=== PATIENT | male | born 1950 | race Caucasian/White ===

== ENCOUNTER 2024-08-02 17:53 | Inpatient (IN) | payer OTHER ==
[~2024-08-02 17:53] MED LIST: Heparin 10,000 UNITS/ 10 ML VIAL ONE; Iopamidol-370 76% 500 ML MDV (1 ML CHARGE) ONE
[2024-08-02 18:52] LABS: #Basophils Less than 0.03 10x3/uL (0.0-0.2); #Eosinophils Less than 0.03 10x3/uL (0.0-0.7); %Basophils 0.1 % (0.0-1.0); %Eosinophils 0.1 % (0.0-10.0); %Lymphocytes 10.2 % (21.0-51.0); %Monocytes 9.7 % (0.0-10.0); %Neutrophils 79.5 % (42.0-75.0); Hematocrit 29.9 % (42.0-52.0); Hemoglobin 9.4 g/dL (14.0-18.0); Mean Corpuscular HGB CONC 31.4 g/dL (32.0-36.0); Mean Corpuscular Hemoglobin 26.1 pg (27.0-31.0); Mean Corpuscular Volume 83.1 fL (78.0-98.0); Mean Platelet Volume 9.3 fL (7.4-10.4); Platelet Count 233 10x3/uL (130-400); RBC Distribution Width 16.9 % (11.5-14.5)
[2024-08-02 18:59] LABS: Actual Bicarbonate (HCO3v) 24.6 mEq/L (22-28); Analyzer IN Cardio ER; Base Excess -0.5 mEq/L (-2.0 to +3.0); Chloride (VBG) 96 mmol/L (98-106); Hematocrit-VBG 26 % (42.0-52.0); Sodium 129 mmol/L (133-146); pH (venous) 7.382 (7.32-7.43)
[2024-08-02 19:13] LABS: Potassium (VBG) 6.04 mmol/L (3.70-5.30)
[2024-08-02 19:38] LABS: ALT (SGPT) 57 U/L (8-55); AST (SGOT) 46 U/L (5-34); Albumin 3.4 g/dL (3.4-4.8); Alkaline Phosphatase 91 U/L (40-110); Anion Gap 17 mmol/L (10-20); BUN (Urea Nitrogen) 55 mg/dL (8.4-25.7); Bilirubin, Total 0.4 mg/dL (0.2-1.2); Calc. Creatinine Clearance 0 mL/min (70-130); Calcium 9.3 mg/dL (7.8-10.44); Carbon Dioxide 21 mmol/L (23-31); Chloride 98 mmol/L (98-107); Estimated GFR 28; Globulin 3.8 g/dL (2.4-3.5); Glucose 87 mg/dL (83-110); Potassium 6.3 mmol/L (3.5-5.1); Protein, Total 7.2 g/dL (5.8-8.1); Sodium 130 mmol/L (136-145)
[2024-08-02] MEDS ORDERED: CALCIUM GLUC 1 GM/NS 50 ML IV Bag ONE (20:43)
[2024-08-02 22:20] LABS: Actual Bicarbonate (HCO3a) 25.4 mEq/L (22-28); Analyzer IN Cardio ER; Base Excess (BEa) 0.1 mEq/L (-2.0 to +3.0); CO2 Tension 44.3 mmHg (35.0-45.0); Carboxyhemoglobin (COHb) 0.5 gm% (0.0-3.0); Hematocrit-ABG 24 % (42.0-52.0); Hemoglobin (Hb) 8.1 g/dL (14.0-18.0); pH, Arterial 7.376 (7.35-7.45)
[2024-08-02 23:07] LABS: HBSAB Concentration Less than 8.00 mIU/mL; HBsAg Index 0.25 S/CO (0-0.99); Hep B Core Total Ab NONREACTIVE (NonReactive); Hep B Core Total Index 0.11 S/CO (0-0.79); Hep B Surf AB NONREACTIVE (NonReactive); Hep B Surf Ag NONREACTIVE S/CO (NonReactive); Hep C IgG Ab NONREACTIVE S/CO (NonReactive); Hep C Index 0.06 S/CO (0-0.79)
[2024-08-02 23:32] LABS: INR-International Normal Ratio 1.2
[2024-08-02 23:33] LABS: PTT 25.1 sec (22.9-36.1)
[2024-08-03] MEDS ORDERED: Calcium Carbonate 500 MG ChewTAB PO PRN (01:28)
[2024-08-03] MEDS ORDERED: Ondansetron PF 4 MG/2 ML Vial IVP PRN (01:28)
[2024-08-03] MEDS ORDERED: Ondansetron ODT 4 MG TAB PO PRN (01:28)
[2024-08-03] MEDS ORDERED: Acetaminophen 650 MG Suppository PR PRN (01:28)
[2024-08-03 05:31] LABS: #Basophils 0.03 10x3/uL (0.0-0.2); %Basophils 0.3 % (0.0-1.0); %Eosinophils 0.5 % (0.0-10.0); %Lymphocytes 11.7 % (21.0-51.0); %Monocytes 13.4 % (0.0-10.0); %Neutrophils 73.8 % (42.0-75.0); Hematocrit 27.9 % (42.0-52.0); Hemoglobin 8.9 g/dL (14.0-18.0); Mean Corpuscular HGB CONC 31.9 g/dL (32.0-36.0); Mean Corpuscular Hemoglobin 26.4 pg (27.0-31.0); Mean Corpuscular Volume 82.8 fL (78.0-98.0); Platelet Count 230 10x3/uL (130-400); RBC Distribution Width 16.9 % (11.5-14.5); Red Blood Cell (RBC) Count 3.37 mill/uL (4.70-6.10)
[2024-08-03 05:40] VITALS: BMI 17.5
[2024-08-03 05:53] LABS: Anion Gap 9 mmol/L (10-20); BUN (Urea Nitrogen) 19 mg/dL (8.4-25.7); Calc. Creatinine Clearance 49 mL/min (70-130); Calcium 8.8 mg/dL (7.8-10.44); Carbon Dioxide 29 mmol/L (23-31); Chloride 102 mmol/L (98-107); Estimated GFR 74; Glucose 71 mg/dL (83-110); Sodium 136 mmol/L (136-145)
[2024-08-03] MEDS: LOKELMA 10 GM PACKET PO SCH (06:10)
[2024-08-03] MEDS: Famotidine/PF 20 mg/2ml Vial SLOW IVP SCH (08:53)
[2024-08-03] MEDS: Famotidine 20 MG TAB PO SCH (09:00)
[2024-08-03 14:11] VITALS: BMI 17.5
[2024-08-03] MEDS ORDERED: LACTOSE REDUCED FOOD PO SCH (15:00)
[2024-08-03] MEDS: Ipratropium/Albuterol 3 ML NEB NEB SCH (15:21)
[2024-08-03] MEDS: Ferrous Sulfate 325 MG TAB PO SCH (16:28)
[2024-08-03 19:42] LABS: Anion Gap 12 mmol/L (10-20); BUN (Urea Nitrogen) 24 mg/dL (8.4-25.7); Calc. Creatinine Clearance 37 mL/min (70-130); Calcium 8.4 mg/dL (7.8-10.44); Carbon Dioxide 25 mmol/L (23-31); Chloride 101 mmol/L (98-107); Estimated GFR 53; Glucose 121 mg/dL (83-110); Potassium 3.7 mmol/L (3.5-5.1); Sodium 134 mmol/L (136-145)
[2024-08-03] MEDS: DULoxetine 30 MG CAP PO SCH (21:48)
[2024-08-03] MEDS: Atorvastatin Calcium 40 MG TAB PO SCH (21:49)
[2024-08-03] MEDS: Docusate 100 MG CAP PO SCH (21:49)
[2024-08-04 03:38] LABS: #Basophils 0.03 10x3/uL (0.0-0.2); %Basophils 0.4 % (0.0-1.0); %Eosinophils 2.8 % (0.0-10.0); %Lymphocytes 14.1 % (21.0-51.0); %Monocytes 16.1 % (0.0-10.0); %Neutrophils 66.3 % (42.0-75.0); Hematocrit 26.3 % (42.0-52.0); Hemoglobin 8.3 g/dL (14.0-18.0); Mean Corpuscular HGB CONC 31.6 g/dL (32.0-36.0); Mean Corpuscular Hemoglobin 26.7 pg (27.0-31.0); Mean Corpuscular Volume 84.6 fL (78.0-98.0); Platelet Count 211 10x3/uL (130-400); RBC Distribution Width 17.2 % (11.5-14.5); Red Blood Cell (RBC) Count 3.11 mill/uL (4.70-6.10)
[2024-08-04 03:55] LABS: Anion Gap 9 mmol/L (10-20); BUN (Urea Nitrogen) 26 mg/dL (8.4-25.7); Calc. Creatinine Clearance 31 mL/min (70-130); Calcium 8.5 mg/dL (7.8-10.44); Carbon Dioxide 28 mmol/L (23-31); Chloride 103 mmol/L (98-107); Estimated GFR 44; Glucose 96 mg/dL (83-110); Potassium 3.9 mmol/L (3.5-5.1); Sodium 136 mmol/L (136-145)
[2024-08-04] MEDS: Aspirin 81 mg Enteric Coated Tablet PO SCH (08:25)
[2024-08-04] MEDS ORDERED: Clopidogrel Bisulfate 75 MG TAB PO SCH (09:00)
[2024-08-05 04:55] LABS: #Basophils 0.03 10x3/uL (0.0-0.2); %Basophils 0.4 % (0.0-1.0); %Eosinophils 1.9 % (0.0-10.0); %Lymphocytes 9.7 % (21.0-51.0); %Monocytes 14.6 % (0.0-10.0); %Neutrophils 72.9 % (42.0-75.0); Hematocrit 25.3 % (42.0-52.0); Mean Corpuscular HGB CONC 31.6 g/dL (32.0-36.0); Mean Corpuscular Hemoglobin 26.9 pg (27.0-31.0); Mean Corpuscular Volume 85.2 fL (78.0-98.0); Mean Platelet Volume 9.2 fL (7.4-10.4); Platelet Count 216 10x3/uL (130-400); RBC Distribution Width 17.1 % (11.5-14.5); Red Blood Cell (RBC) Count 2.97 mill/uL (4.70-6.10)
[2024-08-05 05:16] LABS: Anion Gap 10 mmol/L (10-20); BUN (Urea Nitrogen) 28 mg/dL (8.4-25.7); Calc. Creatinine Clearance 39 mL/min (70-130); Calcium 8.3 mg/dL (7.8-10.44); Carbon Dioxide 25 mmol/L (23-31); Chloride 103 mmol/L (98-107); Estimated GFR 57; Glucose 118 mg/dL (83-110); Potassium 4.2 mmol/L (3.5-5.1); Sodium 134 mmol/L (136-145)
[2024-08-05] MEDS: NIFEdipine XL 60 MG ER.TAB PO SCH (08:22)
[2024-08-05] MEDS: hydrALAZINE 20 MG/ML VIAL SLOW IVP PRN (08:22)
[2024-08-05] MEDS ORDERED: Furosemide 20 MG TAB PO PRN (17:58)
[2024-08-05] MEDS: Terazosin HCl 1 MG CAP PO SCH (20:30)
[2024-08-05] MEDS: Rivaroxaban 10 MG TAB PO SCH (20:32)
[2024-08-06 03:53] LABS: #Basophils 0.03 10x3/uL (0.0-0.2); %Basophils 0.4 % (0.0-1.0); %Eosinophils 1.8 % (0.0-10.0); %Lymphocytes 9.3 % (21.0-51.0); %Monocytes 13.8 % (0.0-10.0); %Neutrophils 74.2 % (42.0-75.0); Hematocrit 24.2 % (42.0-52.0); Hemoglobin 7.6 g/dL (14.0-18.0); Mean Corpuscular HGB CONC 31.4 g/dL (32.0-36.0); Mean Corpuscular Hemoglobin 26.4 pg (27.0-31.0); Mean Platelet Volume 8.9 fL (7.4-10.4); Platelet Count 220 10x3/uL (130-400); RBC Distribution Width 17.4 % (11.5-14.5); Red Blood Cell (RBC) Count 2.88 mill/uL (4.70-6.10)
[2024-08-06 04:07] LABS: Anion Gap 10 mmol/L (10-20); BUN (Urea Nitrogen) 27 mg/dL (8.4-25.7); Calc. Creatinine Clearance 50 mL/min (70-130); Calcium 8.5 mg/dL (7.8-10.44); Carbon Dioxide 26 mmol/L (23-31); Chloride 104 mmol/L (98-107); Estimated GFR 74; Glucose 110 mg/dL (83-110); Potassium 4.4 mmol/L (3.5-5.1); Sodium 136 mmol/L (136-145)
[2024-08-06] MEDS: Furosemide 20 MG TAB PO SCH (08:04)
[2024-08-06] MEDS: Loratadine 10 MG TAB PO SCH (08:04)
[2024-08-06] MEDS: NIFEdipine XL 60 MG ER.TAB PO SCH (08:05)
[2024-08-07 03:47] LABS: #Basophils Less than 0.03 10x3/uL (0.0-0.2); %Basophils 0.1 % (0.0-1.0); %Eosinophils 1.1 % (0.0-10.0); %Lymphocytes 7.1 % (21.0-51.0); %Neutrophils 78.1 % (42.0-75.0); Hematocrit 23.7 % (42.0-52.0); Hemoglobin 7.6 g/dL (14.0-18.0); Mean Corpuscular HGB CONC 32.1 g/dL (32.0-36.0); Mean Corpuscular Hemoglobin 26.4 pg (27.0-31.0); Mean Corpuscular Volume 82.3 fL (78.0-98.0); Mean Platelet Volume 8.8 fL (7.4-10.4); Platelet Count 216 10x3/uL (130-400); RBC Distribution Width 17.6 % (11.5-14.5); Red Blood Cell (RBC) Count 2.88 mill/uL (4.70-6.10)
[2024-08-07 04:07] LABS: Anion Gap 11 mmol/L (10-20); BUN (Urea Nitrogen) 34 mg/dL (8.4-25.7); Calc. Creatinine Clearance 40 mL/min (70-130); Carbon Dioxide 30 mmol/L (23-31); Chloride 99 mmol/L (98-107); Estimated GFR 58; Glucose 113 mg/dL (83-110); Potassium 4.9 mmol/L (3.5-5.1); Sodium 135 mmol/L (136-145)
[2024-08-07] MEDS: Mometasone 100 MCG/Formoterol 5 MCG 120 PUFF INHALER INH SCH (06:59)
[2024-08-07] MEDS: Acetaminophen 325 MG TAB PO PRN (20:24)
[2024-08-08 04:32] LABS: #Basophils 0.03 10x3/uL (0.0-0.2); %Basophils 0.4 % (0.0-1.0); %Eosinophils 1.3 % (0.0-10.0); %Lymphocytes 12.4 % (21.0-51.0); %Monocytes 14.8 % (0.0-10.0); %Neutrophils 70.5 % (42.0-75.0); Hematocrit 23.2 % (42.0-52.0); Hemoglobin 7.3 g/dL (14.0-18.0); Mean Corpuscular HGB CONC 31.5 g/dL (32.0-36.0); Mean Corpuscular Hemoglobin 26.6 pg (27.0-31.0); Mean Corpuscular Volume 84.7 fL (78.0-98.0); Mean Platelet Volume 8.8 fL (7.4-10.4); Platelet Count 226 10x3/uL (130-400); RBC Distribution Width 18.5 % (11.5-14.5); Red Blood Cell (RBC) Count 2.74 mill/uL (4.70-6.10)
[2024-08-08 04:49] LABS: Anion Gap 12 mmol/L (10-20); BUN (Urea Nitrogen) 38 mg/dL (8.4-25.7); Calc. Creatinine Clearance 37 mL/min (70-130); Carbon Dioxide 28 mmol/L (23-31); Chloride 101 mmol/L (98-107); Estimated GFR 54; Glucose 86 mg/dL (83-110); Potassium 4.6 mmol/L (3.5-5.1); Sodium 136 mmol/L (136-145)
[2024-08-08] MEDS: NIFEdipine XL 90 MG ER.TAB PO SCH (09:00)
[2024-08-08 15:05] LABS: Bacteria/HPF None Seen HPF (None Seen); Bilirubin Negative (Negative); Blood, Urine 3+ (Negative); Clarity Clear (Clear); Glucose, Urine (Dipstick) Normal (Negative); Ketone, Urine Negative (Negative); Leukocyte Negative Leu/uL (Negative); Nitrite Negative (Negative); Protein, Urine (Dipstick) Negative (Neg-Trace); RBC/HPF Greater than 50 HPF (0-3); Squamous Epithelial 0-3 HPF (0-3); Urobilinogen Normal mg/dL (Less than 2); WBC/HPF 0-3 HPF (0-3); pH, Urine 6.5 (5.0-9.0)
[2024-08-08] MEDS: Rivaroxaban 10 MG TAB PO SCH (20:19)
[2024-08-08] MEDS ORDERED: Rivaroxaban 15 MG TAB PO SCH (21:00)
[2024-08-09 04:08] LABS: #Basophils Less than 0.03 10x3/uL (0.0-0.2); #Eosinophils Less than 0.03 10x3/uL (0.0-0.7); %Basophils 0.2 % (0.0-1.0); %Eosinophils 0.1 % (0.0-10.0); %Lymphocytes 8.5 % (21.0-51.0); %Monocytes 14.8 % (0.0-10.0); %Neutrophils 75.9 % (42.0-75.0); Hematocrit 20.6 % (42.0-52.0); Hemoglobin 6.6 g/dL (14.0-18.0); Mean Corpuscular Hemoglobin 26.8 pg (27.0-31.0); Mean Corpuscular Volume 83.7 fL (78.0-98.0); Mean Platelet Volume 8.7 fL (7.4-10.4); Platelet Count 209 10x3/uL (130-400); Red Blood Cell (RBC) Count 2.46 mill/uL (4.70-6.10)
[2024-08-09 04:21] LABS: Anion Gap 14 mmol/L (10-20); BUN (Urea Nitrogen) 44 mg/dL (8.4-25.7); Calc. Creatinine Clearance 31 mL/min (70-130); Calcium 8.6 mg/dL (7.8-10.44); Carbon Dioxide 26 mmol/L (23-31); Chloride 97 mmol/L (98-107); Estimated GFR 44; Glucose 91 mg/dL (83-110); Potassium 4.1 mmol/L (3.5-5.1); Sodium 133 mmol/L (136-145)
[2024-08-09 13:30] LABS: Iron 10 ug/dL (65-175); Iron Binding Capacity, Total 285 mcg/dL (261-462)
[2024-08-09 13:49] LABS: Hematocrit 23.8 % (42.0-52.0); Hemoglobin 7.7 g/dL (14.0-18.0)
[2024-08-09 14:28] LABS: Iron 78 ug/dL (65-175); Iron Binding Capacity, Total 293 mcg/dL (261-462)
[2024-08-09 20:46] VITALS: BP 132/65; TEMP 98.1
[2024-08-16 11:42] LABS: O2 Tension (PaO2), arterial 30.9 mmHg (> 70.0)
== END 2024-08-09 23:21 | DRG 682 ==
LOC: ERS 17:53 → EEVIPCON 17:53 → PCU 08-03 02:57
PROVIDERS: ADMIT Student in an Organized Health Care Education/Training Program; ATTEND Internal Medicine
PROC: 30233N1 Transfusion of Nonautologous Red Blood Cells into Peripheral Vein, Percutaneous Approach (ICD-10-PCS; principal; 2024-08-03)
DX: N17.9 Acute kidney failure, unspecified (principal); E43 Unspecified severe protein-calorie malnutrition; J96.01 Acute respiratory failure with hypoxia; I50.33 Acute on chronic diastolic (congestive) heart failure; I13.0 Hypertensive heart and chronic kidney disease with heart failure and stage 1 through stage 4 chronic kidney disease, or unspecified chronic kidney disease; J44.1 Chronic obstructive pulmonary disease with (acute) exacerbation; Z68.1 Body mass index [BMI] 19.9 or less, adult; T82.838A Hemorrhage due to vascular prosthetic devices, implants and grafts, initial encounter; E87.1 Hypo-osmolality and hyponatremia; N18.4 Chronic kidney disease, stage 4 (severe); E87.5 Hyperkalemia; T44.7X5A Adverse effect of beta-adrenoreceptor antagonists, initial encounter; T36.8X5A Adverse effect of other systemic antibiotics, initial encounter; R00.1 Bradycardia, unspecified; I77.1 Stricture of artery; D63.1 Anemia in chronic kidney disease; I48.0 Paroxysmal atrial fibrillation; Z87.891 Personal history of nicotine dependence; Z79.82 Long term (current) use of aspirin; Z79.899 Other long term (current) drug therapy; Z79.01 Long term (current) use of anticoagulants; Y75.1 Therapeutic (nonsurgical) and rehabilitative neurological devices associated with adverse incidents; R33.9 Retention of urine, unspecified
CPT/HCPCS: 36415; 36430; 36556; 71045; 74174; 80048; 80053; 81001; 81003; 81015; 82728; 82805; 83540; 83550; 83605; 83735; 83880; 84484; 85025; 85046; 85610; 85730; 86704; 86706; 86803; 86850; 86900; 86901; 87040; 87086; 87340; 90935; 93005; 93306; 93798; 93923; 94640; 94760; 96365; 96374; 96375; G0257; J0360; J0613; J0696; J1611; J1644; J1815; J3490; J7620; J7999; P9016; Q9967